=== PATIENT | female | born 1960 | race Caucasian/White ===

== ENCOUNTER 2023-04-29 12:21 | Emergency (ER) | payer MEDICAID ==
[~2023-04-29] VITALS: Ht 162.6 cm; Wt 78.4 kg
[2023-04-29 12:50] LABS: BASOPHILS % (AUTO) 0.1 % (0-1); EOSINOPHILS # (AUTO) 0.1 X10'3 (0-0.9); EOSINOPHILS % (AUTO) 0.8 % (0-6); HEMATOCRIT 45.4 % (35.0-45.0); HEMOGLOBIN 15.5 g/dl (12.0-16.0); LYMPHOCYTES # (AUTO) 0.4 X10'3 (1.1-4.8); LYMPHOCYTES % (AUTO) 4.5 % (21-51); MEAN CORPUSCULAR HEMOGLOBIN 31.3 PG (27.0-31.0); MEAN CORPUSCULAR HGB CONC 34.1 g/dL (33.0-36.5); MEAN CORPUSCULAR VOLUME 91.8 FL (78-98); MEAN PLATELET VOLUME 7.7 FL (7.4-10.4); MONOCYTES # (AUTO) 0.6 X10'3 (0-0.9); MONOCYTES % (AUTO) 6.5 % (2-12); NEUTROPHILS # (AUTO) 8.4 X10'3 (1.8-7.7); NEUTROPHILS % (AUTO) 88.1 % (42-75); PLATELET COUNT 276 X10'3 (140-440); RED BLOOD COUNT 4.95 X10'6 (4.20-5.60); RED CELL DISTRIBUTION WIDTH 14.1 % (11.5-14.5); WHITE BLOOD COUNT 9.6 X10'3 (4.5-11.0)
[2023-04-29 13:10] LABS: ALBUMIN 4.2 G/DL (3.4-5.0); ANION GAP 11 (8-16); BLOOD UREA NITROGEN 10 MG/DL (7-18); CALCIUM 8.6 MG/DL (8.5-10.1); CHLORIDE 101 MMOL/L (99-107); CREATININE 0.91 MG/DL (0.40-0.90); GLUCOSE 100 MG/DL (70-104); POTASSIUM 3.4 MMOL/L (3.5-5.1); SODIUM 139 MMOL/L (135-145); TOTAL CARBON DIOXIDE 27.3 MMOL/L (24-32); eCRCL 55 ML/MIN; eGFR 63 ML/MIN
[2023-04-29 13:11] LABS: ALANINE AMINOTRANSFERASE 75 U/L (12-78); ALBUMIN/GLOBULIN RATIO 1.1 (1.1-1.5); ALKALINE PHOSPHATASE 75 IU/L (46-116); ASPARTATE AMINO TRANSFERASE 106 U/L (10-37)
[2023-04-29 13:19] LABS: PRO BRAIN NATRIURETIC PEPTIDE 181 PG/ML (0-125)
[2023-04-29] MEDS ORDERED: diphenhydrAMINE 50 mg/ml inj IV ONE (15:20)
[2023-04-29] MEDS ORDERED: morphine 2 MG/ML inj. syringe IV ONE (15:20)
[2023-04-29] MEDS ORDERED: normal saline 1000ml 1,000 ML IV ONE (15:20)
[2023-04-29] MEDS ORDERED: proCHLORperazine 10 MG/2 ml inj IV ONE (15:20)
[2023-04-29] MEDS ORDERED: ONDA4TAB12 PO (18:03)
[2023-04-29] MEDS ORDERED: NIRM1TAB9 PO (18:03)
[2023-04-29 18:15] VITALS: BP 130/74; PULSE 82; RESP 20; TEMP 98.9; O2SAT 98
== END 2023-04-29 18:18 | disposition home or self-care (01) ==
LOC: ER 12:22
DX: U07.1 COVID-19 (principal); R07.89 Other chest pain; R51.9 Headache, unspecified; R53.1 Weakness; J02.9 Acute pharyngitis, unspecified; R10.32 Left lower quadrant pain; I10 Essential (primary) hypertension; Z79.899 Other long term (current) drug therapy
CPT/HCPCS: 36415; 71045; 80053; 83880; 84484; 85025; 87502; 87503; 87811; 93005; 96361; 96374; 96375; 99285; J0780; J1200; J2270; J7030

== ENCOUNTER 2023-06-17 18:15 | Emergency (ER) | payer MEDICAID ==
[~2023-06-17] VITALS: Ht 162.6 cm; Wt 76.6 kg
[~2023-06-17 18:15] MED LIST: NIRM1TAB9 PO; ONDA4TAB12 PO
[2023-06-17 18:33] VITALS: BP 129/78; PULSE 64; RESP 16; TEMP 98.4; O2SAT 96
[2023-06-17 19:13] LABS: BASOPHILS % (AUTO) 0.6 % (0-1); EOSINOPHILS # (AUTO) 0.2 X10'3 (0-0.9); EOSINOPHILS % (AUTO) 2.4 % (0-6); HEMATOCRIT 42.5 % (35.0-45.0); HEMOGLOBIN 14.7 g/dl (12.0-16.0); LYMPHOCYTES # (AUTO) 2.5 X10'3 (1.1-4.8); LYMPHOCYTES % (AUTO) 34.1 % (21-51); MEAN CORPUSCULAR HEMOGLOBIN 31.6 PG (27.0-31.0); MEAN CORPUSCULAR HGB CONC 34.5 g/dL (33.0-36.5); MEAN CORPUSCULAR VOLUME 91.6 FL (78-98); MEAN PLATELET VOLUME 7.4 FL (7.4-10.4); MONOCYTES # (AUTO) 0.5 X10'3 (0-0.9); MONOCYTES % (AUTO) 7.3 % (2-12); NEUTROPHILS # (AUTO) 4.1 X10'3 (1.8-7.7); NEUTROPHILS % (AUTO) 55.6 % (42-75); PLATELET COUNT 282 X10'3 (140-440); RED BLOOD COUNT 4.64 X10'6 (4.20-5.60); RED CELL DISTRIBUTION WIDTH 14.5 % (11.5-14.5); WHITE BLOOD COUNT 7.3 X10'3 (4.5-11.0)
[2023-06-17 19:23] LABS: ALBUMIN 3.5 G/DL (3.4-5.0); ANION GAP 12 (8-16); BLOOD UREA NITROGEN 24 MG/DL (7-18); CALCIUM 8.8 MG/DL (8.5-10.1); CHLORIDE 105 MMOL/L (99-107); CREATININE 1.71 MG/DL (0.40-0.90); GLUCOSE 102 MG/DL (70-104); POTASSIUM 3.4 MMOL/L (3.5-5.1); PRO BRAIN NATRIURETIC PEPTIDE 235 PG/ML (0-125); SODIUM 144 MMOL/L (135-145); TOTAL CARBON DIOXIDE 27.1 MMOL/L (24-32); eCRCL 29 ML/MIN; eGFR 30 ML/MIN
== END 2023-06-17 23:59 | disposition left against medical advice (07) ==
LOC: ER 18:15
DX: R42 Dizziness and giddiness (principal); Z53.21 Procedure and treatment not carried out due to patient leaving prior to being seen by health care provider
CPT/HCPCS: 36415; 80048; 83880; 84484; 85025; 93005; 99281